=== PATIENT | female | born 1965 | race Caucasian/White ===

== ENCOUNTER 2024-06-22 06:25 | Inpatient (IN) ==
[2024-06-15 11:40] LABS: Basophils # (Auto) 0.05 K/mcL (0.00-0.30); Basophils % (Auto) 0.8 % (0.0-2.0); Eosinophils # (Auto) 0.18 K/mcL (0.00-0.70); Hematocrit 45.4 % (34.1-44.9); Hemoglobin 14.7 g/dL (11.2-15.7); Lymphocytes # (Auto) 1.64 K/mcL (1.50-4.80); Lymphocytes % (Auto) 27.2 % (15.5-49.0); Mean Cell Volume 87.3 fL (80.0-100.0); Mean Corpuscular HGB Conc 32.4 g/dL (31.0-36.0); Mean Platelet Volume 9.3 fL (8.8-12.5); Monocytes % (Auto) 8.3 % (1.0-12.0); Neutrophils % (Auto) 60.5 % (38.0-78.0); Platelet Count 237 K/mcL (140-440); Red Cell Distribution Width 12.8 % (11.5-14.5)
[2024-06-15 12:28] LABS: Blood Urea Nitrogen 13 mg/dL (6-20); Calcium 9.7 mg/dL (8.6-10.4); Carbon Dioxide 26 mmol/L (22-30); Chloride 104 mmol/L (96-108); Glomerular Filtration Rate 70; Glucose 91 mg/dL (70-105); Potassium 4.4 mmol/L (3.3-5.1); Sodium 141 mmol/L (133-145)
[2024-06-15 16:20] LABS: Estimated Average Glucose(eAG) 111 mg/dL; Hemoglobin A1C 5.5 % Hgb (4.0-6.0)
[2024-06-22] MEDS: CELECOXIB 200 MG CAPSULE PO SCH (06:59)
[2024-06-22] MEDS: ACETAMINOPHEN 500 MG TABLET PO SCH (06:59)
[2024-06-22] MEDS: GABAPENTIN 400 MG CAPSULE PO SCH (06:59)
[2024-06-22] MEDS ORDERED: KETAMINE 50 MG/ML ML ONE (07:02)
[2024-06-22] MEDS ORDERED: MIDAZOLAM 2 MG/2 ML VIAL ONE (07:02)
[2024-06-22] MEDS ORDERED: PROPOFOL 200 MG/20 ML VIAL IV ONE (07:02)
[2024-06-22] MEDS ORDERED: SUCCINYLCHOLINE 200 MG/10 ML VIAL IV ONE (07:04)
[2024-06-22] MEDS ORDERED: DEXAMETHASONE 10 MG/ML VIAL ONE (07:04)
[2024-06-22] MEDS ORDERED: LIDOCAINE 2% PF 5 ML VIAL ONE (07:04)
[2024-06-22] MEDS ORDERED: TRANEXAMIC ACID 1,000 MG/10 ML VIAL ONE (07:04)
[2024-06-22] MEDS ORDERED: PHENYLephrine 1 MG/10 ML SYRINGE (ANEST) ONE (07:04)
[2024-06-22] MEDS ORDERED: ROCURONIUM 10 MG/ML ML IV ONE ×2 (07:04→09:08)
[2024-06-22] MEDS ORDERED: ONDANSETRON 4 MG/2 ML VIAL ONE (07:04)
[2024-06-22] MEDS ORDERED: GLYCOPYRROLATE 0.2 MG/ML VIAL IV ONE (07:04)
[2024-06-22] MEDS ORDERED: ePHEDrine 50 MG/5 ML SYRINGE (ANEST) IV ONE (07:09)
[2024-06-22] MEDS ORDERED: METOCLOPRAMIDE 10 MG/2 ML VIAL ONE (07:09)
[2024-06-22] MEDS ORDERED: DEXMEDETOMIDINE HCL 200 MCG/2 ML VIAL ONE (07:09)
[2024-06-22] MEDS ORDERED: 0.9 % SODIUM CHLORIDE 100 ML IV ONE (07:11)
[2024-06-22] MEDS: ceFAZolin 2 GM in DEXTROSE 5% IN WATER 50 ML IV SCH (07:33)
[2024-06-22] MEDS: BUPIVACAINE W/EPI 0.25% 50 ML VIAL IJ ONE (07:57)
[2024-06-22] MEDS ORDERED: FAMOTIDINE/PF 20 MG/2 ML VIAL IV ONE (08:08)
[2024-06-22] MEDS ORDERED: HYDROmorphone 0.5 MG/0.5 ML SYRINGE ONE ×3 (09:08→12:30)
[2024-06-22] MEDS: metroNIDAZOLE 500 MG/100 ML BAG IV ONE (09:31)
[2024-06-22] MEDS: LEVOFLOXACIN 500 MG/100 ML BAG IV ONE (09:31)
[2024-06-22] MEDS ORDERED: fentaNYL 100 MCG/2 ML VIAL ONE (11:09)
[2024-06-22] MEDS ORDERED: NALOXONE HCL 0.4 MG/ML VIAL IV PRN (11:15)
[2024-06-22] MEDS ORDERED: fentaNYL 100 MCG/2 ML VIAL IV PRN (11:15)
[2024-06-22] MEDS ORDERED: ONDANSETRON 4 MG/2 ML VIAL IV PRN (11:15)
[2024-06-22] MEDS ORDERED: HYDROmorphone 0.5 MG/0.5 ML SYRINGE IV PRN (11:15)
[2024-06-22] MEDS ORDERED: IPRATROPIUM/ALBUTEROL 3 ML AMPUL.NEB NEB PRN (11:15)
[2024-06-22] MEDS ORDERED: KETOROLAC 30 MG/ML VIAL ONE (11:16)
[2024-06-22] MEDS ORDERED: SUGAMMADEX SODIUM 200 MG/2 ML VIAL IV ONE (11:18)
[2024-06-22] MEDS: DEXTROSE 5%-NS 1,000 ML IV SCH (13:25)
[2024-06-22] MEDS: LACTATED RINGERS 1,000 ML IV SCH (13:29)
[2024-06-22] MEDS: 0.9 % SODIUM CHLORIDE 10 ML SYRINGE IV SCH (14:11)
[2024-06-22] MEDS: ACETAMINOPHEN 1,000 MG/100 ML BAG IV SCH (14:33)
[2024-06-22] MEDS: metroNIDAZOLE 500 MG/100 ML BAG IV SCH (15:26)
[2024-06-22] MEDS: HYDROmorphone 0.5 MG/0.5 ML SYRINGE IV PRN (15:30)
[2024-06-22] MEDS ORDERED: LEVOFLOXACIN 750 MG/150 ML BAG IV SCH (16:00)
[2024-06-22] MEDS: LEVOFLOXACIN 500 MG/100 ML BAG IV SCH (16:37)
[2024-06-22] MEDS: METOCLOPRAMIDE 10 MG/2 ML VIAL IV SCH (17:05)
[2024-06-22] MEDS: LEVOFLOXACIN 250 MG/50 ML BAG IV SCH (18:10)
[2024-06-22] MEDS: DOCUSATE SODIUM 100 MG CAPSULE PO SCH (20:04)
[2024-06-22] MEDS: SENNOSIDES 1 TABLET PO SCH (20:04)
[2024-06-23 06:30] LABS: Basophils # (Auto) 0.02 K/mcL (0.00-0.30); Basophils % (Auto) 0.2 % (0.0-2.0); Eosinophils % (Auto) 2.7 % (0.0-7.0); Hematocrit 33.8 % (34.1-44.9); Hemoglobin 11.2 g/dL (11.2-15.7); Lymphocytes # (Auto) 0.67 K/mcL (1.50-4.80); Lymphocytes % (Auto) 5.9 % (15.5-49.0); Mean Cell Volume 86.4 fL (80.0-100.0); Mean Corpuscular HGB Conc 33.1 g/dL (31.0-36.0); Mean Platelet Volume 10.2 fL (8.8-12.5); Monocytes # (Auto) 0.57 K/mcL (0.10-0.90); Platelet Count 144 K/mcL (140-440); RBC 3.91 M/mcL (3.59-5.38); WBC 11.3 K/mcL (4.5-11.0)
[2024-06-23] MEDS: ONDANSETRON 4 MG/2 ML VIAL IV PRN (06:46)
[2024-06-23 06:53] LABS: ALT/SGPT 9 U/L (<40); AST/SGOT 23 U/L (<32); Albumin 3.3 gm/dL (3.2-5.2); Albumin/Globulin Ratio 2.2 (1.0-2.3); Alkaline Phosphatase 55 U/L (39-117); Bilirubin,Direct < 0.2 mg/dL (0-0.3); Bilirubin,Total 0.4 mg/dL (0.1-1.0); Blood Urea Nitrogen 14 mg/dL (6-20); Calcium 8.3 mg/dL (8.6-10.4); Carbon Dioxide 21 mmol/L (22-30); Chloride 101 mmol/L (96-108); Globulin 1.5 gm/dL (2.2-3.7); Glomerular Filtration Rate 70; Glucose 120 mg/dL (70-105); Lactate Dehydrogenase 166 U/L (135-225); Phosphorous 3.5 mg/dL (2.5-4.5); Potassium 4.3 mmol/L (3.3-5.1); Sodium 133 mmol/L (133-145); Triglycerides 128 mg/dL (<150); Uric Acid 4.2 mg/dL (2.5-8.0)
[2024-06-23] MEDS: PROCHLORPERAZINE 10 MG/2 ML VIAL IV PRN ×2 (12:54→20:33)
[2024-06-23] MEDS: HYDROmorphone 1 MG/ML SYRINGE IV PRN (13:08)
[2024-06-23] MEDS: PANTOPRAZOLE 40 MG VIAL IV ONE (17:14)
[2024-06-24 06:27] LABS: Basophils # (Auto) 0.01 K/mcL (0.00-0.30); Basophils % (Auto) 0.1 % (0.0-2.0); Eosinophils # (Auto) 0.19 K/mcL (0.00-0.70); Eosinophils % (Auto) 1.6 % (0.0-7.0); Hematocrit 36.5 % (34.1-44.9); Hemoglobin 12.1 g/dL (11.2-15.7); Lymphocytes # (Auto) 0.55 K/mcL (1.50-4.80); Lymphocytes % (Auto) 4.7 % (15.5-49.0); Mean Cell Volume 86.5 fL (80.0-100.0); Mean Corpuscular HGB Conc 33.2 g/dL (31.0-36.0); Mean Platelet Volume 10.3 fL (8.8-12.5); Monocytes # (Auto) 0.51 K/mcL (0.10-0.90); Monocytes % (Auto) 4.3 % (1.0-12.0); Platelet Count 151 K/mcL (140-440); RBC 4.22 M/mcL (3.59-5.38); WBC 11.8 K/mcL (4.5-11.0)
[2024-06-24 07:02] LABS: ALT/SGPT 10 U/L (<40); AST/SGOT 26 U/L (<32); Albumin 3.2 gm/dL (3.2-5.2); Albumin/Globulin Ratio 1.4 (1.0-2.3); Alkaline Phosphatase 68 U/L (39-117); Bilirubin,Direct 0.3 mg/dL (<0.3); Bilirubin,Total 0.6 mg/dL (0.1-1.0); Blood Urea Nitrogen 8 mg/dL (6-20); Calcium 8.4 mg/dL (8.6-10.4); Carbon Dioxide 19 mmol/L (22-30); Chloride 96 mmol/L (96-108); Globulin 2.3 gm/dL (2.2-3.7); Glomerular Filtration Rate 95; Glucose 146 mg/dL (70-105); Lactate Dehydrogenase 189 U/L (135-225); Phosphorous 1.8 mg/dL (2.5-4.5); Potassium 4.1 mmol/L (3.3-5.1); Sodium 129 mmol/L (133-145); Triglycerides 105 mg/dL (<150); Uric Acid 2.6 mg/dL (2.5-8.0)
[2024-06-24] MEDS: PANTOPRAZOLE 40 MG VIAL IV SCH (08:00)
[2024-06-24] MEDS ORDERED: IOPAMIDOL 100 ML BOTTLE IV ONE (14:46)
[2024-06-24] MEDS ORDERED: PROPOFOL 200 MG/20 ML VIAL IV ONE (16:30)
[2024-06-24] MEDS ORDERED: KETAMINE 50 MG/ML Syringe IV ONE (16:30)
[2024-06-24] MEDS ORDERED: ROCURONIUM 10 MG/ML ML IV ONE (17:36)
[2024-06-24] MEDS ORDERED: HYDROmorphone 0.5 MG/0.5 ML SYRINGE ONE (17:36)
[2024-06-24] MEDS ORDERED: METOCLOPRAMIDE 10 MG/2 ML VIAL ONE (17:37)
[2024-06-24] MEDS ORDERED: DEXAMETHASONE 10 MG/ML VIAL ONE (17:37)
[2024-06-24] MEDS ORDERED: ONDANSETRON 4 MG/2 ML VIAL ONE (17:37)
[2024-06-24] MEDS ORDERED: GLYCOPYRROLATE 0.2 MG/ML VIAL IV ONE (17:37)
[2024-06-24] MEDS ORDERED: PHENYLephrine 1 MG/10 ML SYRINGE (ANEST) ONE (17:37)
[2024-06-24] MEDS ORDERED: fentaNYL 100 MCG/2 ML VIAL ONE (17:42)
[2024-06-24] MEDS ORDERED: LIDOCAINE 2% PF 5 ML VIAL ONE (17:42)
[2024-06-24] MEDS ORDERED: SUGAMMADEX SODIUM 200 MG/2 ML VIAL IV ONE (17:54)
[2024-06-24] MEDS ORDERED: IPRATROPIUM/ALBUTEROL 3 ML AMPUL.NEB NEB PRN (17:58)
[2024-06-24] MEDS ORDERED: HYDROmorphone 0.5 MG/0.5 ML SYRINGE IV PRN (17:58)
[2024-06-24] MEDS ORDERED: fentaNYL 100 MCG/2 ML VIAL IV PRN (17:58)
[2024-06-24] MEDS: BENZOCAINE ONE 20% 1 SPRAY TOPICAL PRN (21:29)
[2024-06-24] MEDS: ONDANSETRON 4 MG/2 ML VIAL IV PRN (21:48)
[2024-06-24] MEDS: LACTATED RINGERS 1,000 ML IV SCH (22:04)
[2024-06-25] MEDS: PYRIDOSTIGMINE BROMIDE 10 MG/2 ML AMPUL IV SCH (00:12)
[2024-06-25 06:30] LABS: Basophils # (Auto) 0 K/mcL (0.00-0.30); Basophils % (Auto) 0 % (0.0-2.0); Eosinophils # (Auto) 0.02 K/mcL (0.00-0.70); Eosinophils % (Auto) 0.2 % (0.0-7.0); Hematocrit 34.7 % (34.1-44.9); Hemoglobin 11.5 g/dL (11.2-15.7); Lymphocytes # (Auto) 0.42 K/mcL (1.50-4.80); Lymphocytes % (Auto) 4.2 % (15.5-49.0); Mean Cell Volume 86.1 fL (80.0-100.0); Mean Corpuscular HGB Conc 33.1 g/dL (31.0-36.0); Mean Platelet Volume 10.2 fL (8.8-12.5); Monocytes # (Auto) 0.46 K/mcL (0.10-0.90); Monocytes % (Auto) 4.6 % (1.0-12.0); Neutrophils % (Auto) 90.7 % (38.0-78.0); Platelet Count 149 K/mcL (140-440); RBC 4.03 M/mcL (3.59-5.38); WBC 9.9 K/mcL (4.5-11.0)
[2024-06-25 07:08] LABS: ALT/SGPT 11 U/L (<40); AST/SGOT 23 U/L (<32); Albumin 2.8 gm/dL (3.2-5.2); Albumin/Globulin Ratio 1.2 (1.0-2.3); Alkaline Phosphatase 56 U/L (39-117); Bilirubin,Direct 0.2 mg/dL (<0.3); Bilirubin,Total 0.4 mg/dL (0.1-1.0); Blood Urea Nitrogen 7 mg/dL (6-20); Calcium 8.4 mg/dL (8.6-10.4); Carbon Dioxide 23 mmol/L (22-30); Chloride 103 mmol/L (96-108); Globulin 2.4 gm/dL (2.2-3.7); Glomerular Filtration Rate 95; Glucose 143 mg/dL (70-105); Lactate Dehydrogenase 206 U/L (135-225); Phosphorous 1.8 mg/dL (2.5-4.5); Potassium 4.3 mmol/L (3.3-5.1); Sodium 136 mmol/L (133-145); Triglycerides 102 mg/dL (<150); Uric Acid 2.8 mg/dL (2.5-8.0)
[2024-06-26 05:50] LABS: Basophils # (Auto) 0.01 K/mcL (0.00-0.30); Basophils % (Auto) 0.1 % (0.0-2.0); Eosinophils # (Auto) 0.41 K/mcL (0.00-0.70); Eosinophils % (Auto) 5.3 % (0.0-7.0); Hematocrit 32.2 % (34.1-44.9); Hemoglobin 10.5 g/dL (11.2-15.7); Lymphocytes # (Auto) 0.69 K/mcL (1.50-4.80); Lymphocytes % (Auto) 8.9 % (15.5-49.0); Mean Corpuscular HGB Conc 32.6 g/dL (31.0-36.0); Mean Platelet Volume 9.8 fL (8.8-12.5); Monocytes # (Auto) 0.51 K/mcL (0.10-0.90); Monocytes % (Auto) 6.6 % (1.0-12.0); Neutrophils % (Auto) 78.7 % (38.0-78.0); Platelet Count 160 K/mcL (140-440); RBC 3.66 M/mcL (3.59-5.38); Red Cell Distribution Width 13.3 % (11.5-14.5); WBC 7.8 K/mcL (4.5-11.0)
[2024-06-26 07:00] LABS: ALT/SGPT 11 U/L (<40); AST/SGOT 21 U/L (<32); Albumin 2.7 gm/dL (3.2-5.2); Albumin/Globulin Ratio 1.2 (1.0-2.3); Alkaline Phosphatase 69 U/L (39-117); Bilirubin,Direct < 0.2 mg/dL (0-0.3); Bilirubin,Total 0.4 mg/dL (0.1-1.0); Blood Urea Nitrogen 8 mg/dL (6-20); Calcium 7.7 mg/dL (8.6-10.4); Carbon Dioxide 24 mmol/L (22-30); Chloride 109 mmol/L (96-108); Globulin 2.2 gm/dL (2.2-3.7); Glomerular Filtration Rate 100; Glucose 116 mg/dL (70-105); Lactate Dehydrogenase 200 U/L (135-225); Phosphorous 1.4 mg/dL (2.5-4.5); Potassium 3.3 mmol/L (3.3-5.1); Sodium 141 mmol/L (133-145); Triglycerides 120 mg/dL (<150); Uric Acid 3.2 mg/dL (2.5-8.0)
[2024-06-26] MEDS: DEXTROSE 5%-LR 1,000 ML IV SCH (13:37)
[2024-06-27] MEDS: LORazepam 2 MG/ML VIAL ONE (03:56)
[2024-06-27] MEDS: LORazepam 2 MG/ML VIAL IV PRN (03:59)
[2024-06-27 06:16] LABS: Basophils # (Auto) 0.02 K/mcL (0.00-0.30); Basophils % (Auto) 0.2 % (0.0-2.0); Hematocrit 31.4 % (34.1-44.9); Hemoglobin 10.3 g/dL (11.2-15.7); Lymphocytes # (Auto) 0.76 K/mcL (1.50-4.80); Lymphocytes % (Auto) 9.5 % (15.5-49.0); Mean Corpuscular HGB Conc 32.8 g/dL (31.0-36.0); Mean Platelet Volume 9.3 fL (8.8-12.5); Monocytes # (Auto) 0.56 K/mcL (0.10-0.90); Neutrophils % (Auto) 76.3 % (38.0-78.0); Platelet Count 164 K/mcL (140-440); RBC 3.61 M/mcL (3.59-5.38); Red Cell Distribution Width 13.4 % (11.5-14.5)
[2024-06-27 06:28] LABS: ALT/SGPT 12 U/L (<40); AST/SGOT 18 U/L (<32); Albumin 2.5 gm/dL (3.2-5.2); Albumin/Globulin Ratio 1.1 (1.0-2.3); Alkaline Phosphatase 57 U/L (39-117); Bilirubin,Direct 0.2 mg/dL (<0.3); Bilirubin,Total 0.3 mg/dL (0.1-1.0); Blood Urea Nitrogen 9 mg/dL (6-20); Carbon Dioxide 24 mmol/L (22-30); Chloride 108 mmol/L (96-108); Globulin 2.2 gm/dL (2.2-3.7); Glomerular Filtration Rate 100; Glucose 132 mg/dL (70-105); Lactate Dehydrogenase 176 U/L (135-225); Potassium 3.4 mmol/L (3.3-5.1); Sodium 141 mmol/L (133-145); Triglycerides 109 mg/dL (<150); Uric Acid 2.8 mg/dL (2.5-8.0)
[2024-06-27] MEDS: BENZOCAINE/MENTHOL 1 LOZENGE PO PRN (09:45)
[2024-06-27] MEDS: HEPARIN 5,000 UNIT/ML VIAL SQ SCH (21:02)
[2024-06-28 06:08] LABS: Hematocrit 31.6 % (34.1-44.9); Hemoglobin 10.3 g/dL (11.2-15.7); Mean Cell Volume 87.3 fL (80.0-100.0); Mean Corpuscular HGB Conc 32.6 g/dL (31.0-36.0); Mean Platelet Volume 9.1 fL (8.8-12.5); Platelet Count 174 K/mcL (140-440); RBC 3.62 M/mcL (3.59-5.38); Red Cell Distribution Width 13.3 % (11.5-14.5); WBC 7.9 K/mcL (4.5-11.0)
[2024-06-28 06:40] LABS: Blood Urea Nitrogen 10 mg/dL (6-20); Carbon Dioxide 25 mmol/L (22-30); Chloride 107 mmol/L (96-108); Glomerular Filtration Rate 100; Glucose 118 mg/dL (70-105); Potassium 3.1 mmol/L (3.3-5.1); Sodium 141 mmol/L (133-145)
[2024-06-29 06:11] LABS: Hematocrit 30.8 % (34.1-44.9); Hemoglobin 10.1 g/dL (11.2-15.7); Mean Cell Volume 86.5 fL (80.0-100.0); Mean Corpuscular HGB Conc 32.8 g/dL (31.0-36.0); Mean Platelet Volume 9.1 fL (8.8-12.5); Platelet Count 205 K/mcL (140-440); RBC 3.56 M/mcL (3.59-5.38); Red Cell Distribution Width 13.2 % (11.5-14.5); WBC 8.8 K/mcL (4.5-11.0)
[2024-06-29 06:35] LABS: Blood Urea Nitrogen 8 mg/dL (6-20); Carbon Dioxide 26 mmol/L (22-30); Chloride 106 mmol/L (96-108); Glomerular Filtration Rate 100; Glucose 127 mg/dL (70-105); Potassium 3.1 mmol/L (3.3-5.1); Sodium 141 mmol/L (133-145)
[2024-06-29] MEDS ORDERED: PIPERACILLIN SODIUM/TAZOBACTAM 4.5 GM in DEXTROSE 5% IN WATER 100 ML IV SCH (17:00)
[2024-06-29] MEDS: PIPERACILLIN SODIUM/TAZOBACTAM 4.5 GM in DEXTROSE 5% IN WATER 100 ML IV SCH ×2 (18:00→23:18)
[2024-06-29] MEDS: METOCLOPRAMIDE 10 MG/2 ML VIAL IV PRN (18:01)
[2024-06-30 06:05] LABS: Hematocrit 31.5 % (34.1-44.9); Hemoglobin 10.3 g/dL (11.2-15.7); Mean Cell Volume 86.1 fL (80.0-100.0); Mean Corpuscular HGB Conc 32.7 g/dL (31.0-36.0); Mean Platelet Volume 8.8 fL (8.8-12.5); Platelet Count 211 K/mcL (140-440); RBC 3.66 M/mcL (3.59-5.38); Red Cell Distribution Width 13.1 % (11.5-14.5); WBC 7.7 K/mcL (4.5-11.0)
[2024-06-30 06:40] LABS: Blood Urea Nitrogen 7 mg/dL (6-20); Calcium 7.9 mg/dL (8.6-10.4); Carbon Dioxide 28 mmol/L (22-30); Chloride 105 mmol/L (96-108); Glomerular Filtration Rate 95; Glucose 126 mg/dL (70-105); Potassium 3.4 mmol/L (3.3-5.1); Sodium 141 mmol/L (133-145)
[2024-06-30] MEDS: DEXTROSE 5%-LR 1,000 ML IV SCH (17:11)
[2024-07-01 06:00] LABS: Hemoglobin 10.2 g/dL (11.2-15.7); Mean Cell Volume 87.1 fL (80.0-100.0); Mean Corpuscular HGB Conc 32.9 g/dL (31.0-36.0); Mean Platelet Volume 8.7 fL (8.8-12.5); Platelet Count 229 K/mcL (140-440); RBC 3.56 M/mcL (3.59-5.38); Red Cell Distribution Width 13.3 % (11.5-14.5); WBC 8.5 K/mcL (4.5-11.0)
[2024-07-01 06:27] LABS: Blood Urea Nitrogen 5 mg/dL (6-20); Calcium 7.9 mg/dL (8.6-10.4); Carbon Dioxide 27 mmol/L (22-30); Chloride 107 mmol/L (96-108); Glomerular Filtration Rate 95; Glucose 124 mg/dL (70-105); Potassium 3.1 mmol/L (3.3-5.1); Sodium 142 mmol/L (133-145)
[2024-07-01] MEDS: POTASSIUM CHLORIDE 40 MEQ in DEXTROSE 5% IN WATER 500 ML IV ONE (12:07)
[2024-07-01] MEDS: DEXTROSE 5%-LR W/20MEQ KCL 1,000 ML IV SCH (12:51)
[2024-07-02 06:07] LABS: Hematocrit 32.5 % (34.1-44.9); Hemoglobin 10.6 g/dL (11.2-15.7); Mean Cell Volume 87.4 fL (80.0-100.0); Mean Corpuscular HGB Conc 32.6 g/dL (31.0-36.0); Mean Platelet Volume 8.6 fL (8.8-12.5); Platelet Count 260 K/mcL (140-440); RBC 3.72 M/mcL (3.59-5.38); Red Cell Distribution Width 13.3 % (11.5-14.5)
[2024-07-02 06:44] LABS: Blood Urea Nitrogen 3 mg/dL (6-20); Carbon Dioxide 25 mmol/L (22-30); Chloride 107 mmol/L (96-108); Glomerular Filtration Rate 95; Glucose 125 mg/dL (70-105); Potassium 3.3 mmol/L (3.3-5.1); Sodium 141 mmol/L (133-145)
[2024-07-02] MEDS: DEXTROSE 5%-LR W/20MEQ KCL 1,000 ML IV SCH (16:22)
[2024-07-03 06:33] LABS: Blood Urea Nitrogen 3 mg/dL (6-20); Calcium 8.1 mg/dL (8.6-10.4); Carbon Dioxide 23 mmol/L (22-30); Chloride 108 mmol/L (96-108); Glomerular Filtration Rate 95; Glucose 114 mg/dL (70-105); Potassium 3.6 mmol/L (3.3-5.1); Sodium 141 mmol/L (133-145)
[2024-07-03] MEDS ORDERED: HYDROcodone/APAP 5/325MG TABLET PO PRN (10:15)
[2024-07-03] MEDS: DEXTROSE 5%-LR W/20MEQ KCL 1,000 ML IV SCH (12:06)
[2024-07-04] MEDS: ACETAMINOPHEN 1,000 MG/100 ML BAG IV PRN (22:27)
[2024-07-06 07:13] VITALS: TEMP 97.3; O2SAT 98
[2024-07-06] MEDS ORDERED: AMOXICILLIN/POTASSIUM CLAV 875 MG TABLET PO SCH (17:30)
== END 2024-07-06 10:30 | DRG 908 ==
LOC: SUATTDRO → MEDSUR 06:25 → SUR 06:25 → OBSVTOIN 13:12
PROVIDERS: ADMIT Family Medicine Adult Medicine; ATTEND Family Medicine Adult Medicine

== ENCOUNTER 2024-11-25 05:00 | Inpatient (IN) ==
[2024-11-18 17:49] LABS: Basophils # (Auto) 0.03 K/mcL (0.00-0.30); Basophils % (Auto) 0.6 % (0.0-2.0); Eosinophils # (Auto) 0.17 K/mcL (0.00-0.70); Eosinophils % (Auto) 3.2 % (0.0-7.0); Hematocrit 42.4 % (34.1-44.9); Hemoglobin 13.5 g/dL (11.2-15.7); Lymphocytes % (Auto) 37.2 % (15.5-49.0); Mean Cell Volume 86.4 fL (80.0-100.0); Mean Corpuscular HGB Conc 31.8 g/dL (31.0-36.0); Mean Platelet Volume 9.7 fL (8.8-12.5); Monocytes # (Auto) 0.42 K/mcL (0.10-0.90); Monocytes % (Auto) 7.8 % (1.0-12.0); Neutrophils % (Auto) 50.8 % (38.0-78.0); Platelet Count 205 K/mcL (140-440); RBC 4.91 M/mcL (3.59-5.38); Red Cell Distribution Width 14.6 % (11.5-14.5); WBC 5.4 K/mcL (4.5-11.0)
[2024-11-18 17:52] LABS: Prothrombin Time 13.5 sec (11.9-14.5)
[2024-11-18 17:57] LABS: ALT/SGPT 22 U/L (<40); AST/SGOT 22 U/L (<32); Albumin 4.6 gm/dL (3.2-5.2); Albumin/Globulin Ratio 1.8 (1.0-2.3); Alkaline Phosphatase 78 U/L (39-117); Bilirubin,Total 0.4 mg/dL (0.1-1.0); Blood Urea Nitrogen 14 mg/dL (6-20); Calcium 9.6 mg/dL (8.6-10.4); Carbon Dioxide 27 mmol/L (22-30); Chloride 105 mmol/L (96-108); Globulin 2.6 gm/dL (2.2-3.7); Glomerular Filtration Rate 70; Glucose 94 mg/dL (70-105); Potassium 3.7 mmol/L (3.3-5.1); Sodium 143 mmol/L (133-145)
[2024-11-25] MEDS ORDERED: KETAMINE 50 MG/ML ML ONE ×2 (07:15→08:22)
[2024-11-25] MEDS ORDERED: fentaNYL 100 MCG/2 ML VIAL ONE (07:15)
[2024-11-25] MEDS ORDERED: PROPOFOL 200 MG/20 ML VIAL IV ONE (07:15)
[2024-11-25] MEDS: CEFEPIME 2 GM VIAL IV SCH (07:15)
[2024-11-25] MEDS ORDERED: ROCURONIUM 10 MG/ML ML IV ONE ×2 (07:18→10:25)
[2024-11-25] MEDS ORDERED: LIDOCAINE 2% PF 5 ML VIAL ONE ×2 (07:18→08:20)
[2024-11-25] MEDS ORDERED: SUCCINYLCHOLINE 200 MG/10 ML VIAL IV ONE (07:18)
[2024-11-25] MEDS ORDERED: ONDANSETRON 4 MG/2 ML VIAL ONE (07:18)
[2024-11-25] MEDS ORDERED: GLYCOPYRROLATE 0.2 MG/ML VIAL IV ONE (07:18)
[2024-11-25] MEDS ORDERED: DEXAMETHASONE 10 MG/ML VIAL ONE (07:18)
[2024-11-25] MEDS: metroNIDAZOLE 500 MG/100 ML BAG IV SCH (07:21)
[2024-11-25] MEDS ORDERED: MAGNESIUM SULFATE 2 GM/50 ML BAG IV ONE ×2 (07:43→07:56)
[2024-11-25] MEDS ORDERED: ePHEDrine 50 MG/5 ML SYRINGE (ANEST) IV ONE (07:58)
[2024-11-25] MEDS ORDERED: METOCLOPRAMIDE 10 MG/2 ML VIAL ONE (08:24)
[2024-11-25] MEDS ORDERED: FAMOTIDINE/PF 20 MG/2 ML VIAL IV ONE (08:24)
[2024-11-25] MEDS: SCOPOLAMINE 1 PATCH PATCH TOPICAL SCH (08:26)
[2024-11-25] MEDS ORDERED: HYDROmorphone 0.5 MG/0.5 ML SYRINGE ONE ×3 (08:28→12:02)
[2024-11-25] MEDS ORDERED: PHENYLephrine 1 MG/10 ML SYRINGE (ANEST) ONE (11:03)
[2024-11-25] MEDS ORDERED: SUGAMMADEX SODIUM 200 MG/2 ML VIAL IV ONE (11:47)
[2024-11-25] MEDS ORDERED: LACTATED RINGERS 250 ML IV PRN (12:16)
[2024-11-25] MEDS ORDERED: fentaNYL 100 MCG/2 ML VIAL IV PRN (12:16)
[2024-11-25] MEDS ORDERED: IPRATROPIUM/ALBUTEROL 3 ML AMPUL.NEB NEB PRN (12:16)
[2024-11-25] MEDS ORDERED: NALOXONE HCL 0.4 MG/ML VIAL IV PRN (12:16)
[2024-11-25] MEDS ORDERED: BENZOCAINE/MENTHOL 1 LOZENGE PO PRN (12:16)
[2024-11-25] MEDS ORDERED: ONDANSETRON 4 MG/2 ML VIAL IV PRN ×2 (12:16→12:39)
[2024-11-25] MEDS ORDERED: DROPERIDOL 5 MG/2 ML VIAL IV PRN (12:16)
[2024-11-25] MEDS ORDERED: ONDANSETRON 4 MG ODT TABLET SL PRN (12:39)
[2024-11-25] MEDS: ACETAMINOPHEN 1,000 MG/100 ML BAG IV ONE (13:00)
[2024-11-25] MEDS: ACETAMINOPHEN 1,000 MG/100 ML BAG IV SCH ×2 (13:00→19:55)
[2024-11-25] MEDS: KETOROLAC 15 MG/ML VIAL IV PRN (13:09)
[2024-11-25] MEDS: METHOCARBAMOL 1,000 MG/10 ML VIAL IV PRN (13:09)
[2024-11-25] MEDS: HYDROmorphone 0.5 MG/0.5 ML SYRINGE IV PRN ×2 (13:10→16:02)
[2024-11-25] MEDS: LACTATED RINGERS 1,000 ML IV SCH (14:06)
[2024-11-25] MEDS: PIPERACILLIN SODIUM/TAZOBACTAM 3.375 GM in DEXTROSE 5% IN WATER 50 ML IV SCH (14:08)
[2024-11-25] MEDS: 0.9 % SODIUM CHLORIDE 10 ML SYRINGE IV SCH (14:10)
[2024-11-25] MEDS: PIPERACILLIN SODIUM/TAZOBACTAM 4.5 GM in DEXTROSE 5% IN WATER 50 ML IV ONE (14:22)
[2024-11-25] MEDS: 0.9 % SODIUM CHLORIDE 1,000 ML IV SCH (14:22)
[2024-11-25] MEDS: BENZOCAINE/MENTHOL 1 LOZENGE PO PRN (16:03)
[2024-11-25] MEDS: PIPERACILLIN SODIUM/TAZOBACTAM 4.5 GM in DEXTROSE 5% IN WATER 100 ML IV SCH (18:19)
[2024-11-25] MEDS: clonazePAM 0.5 MG TABLET PO SCH (20:49)
[2024-11-26] MEDS: METOCLOPRAMIDE 10 MG/2 ML VIAL IV SCH (00:12)
[2024-11-26 05:58] LABS: Basophils # (Auto) 0.01 K/mcL (0.00-0.30); Basophils % (Auto) 0.1 % (0.0-2.0); Eosinophils # (Auto) 0 K/mcL (0.00-0.70); Eosinophils % (Auto) 0 % (0.0-7.0); Hematocrit 32.3 % (34.1-44.9); Hemoglobin 10.4 g/dL (11.2-15.7); Lymphocytes # (Auto) 0.81 K/mcL (1.50-4.80); Lymphocytes % (Auto) 6.3 % (15.5-49.0); Mean Cell Volume 86.8 fL (80.0-100.0); Mean Corpuscular HGB Conc 32.2 g/dL (31.0-36.0); Monocytes # (Auto) 0.92 K/mcL (0.10-0.90); Monocytes % (Auto) 7.2 % (1.0-12.0); Neutrophils % (Auto) 86.2 % (38.0-78.0); Platelet Count 162 K/mcL (140-440); RBC 3.72 M/mcL (3.59-5.38); Red Cell Distribution Width 14.4 % (11.5-14.5); WBC 12.9 K/mcL (4.5-11.0)
[2024-11-26 06:24] LABS: ALT/SGPT 21 U/L (<40); AST/SGOT 24 U/L (<32); Albumin 3.5 gm/dL (3.2-5.2); Albumin/Globulin Ratio 1.7 (1.0-2.3); Alkaline Phosphatase 50 U/L (39-117); Bilirubin,Direct 0.2 mg/dL (<0.3); Bilirubin,Total 0.6 mg/dL (0.1-1.0); Blood Urea Nitrogen 12 mg/dL (6-20); Calcium 8.6 mg/dL (8.6-10.4); Carbon Dioxide 24 mmol/L (22-30); Chloride 106 mmol/L (96-108); Globulin 2.1 gm/dL (2.2-3.7); Glomerular Filtration Rate 70; Glucose 124 mg/dL (70-105); Lactate Dehydrogenase 176 U/L (135-225); Phosphorous 4.5 mg/dL (2.5-4.5); Potassium 4.4 mmol/L (3.3-5.1); Sodium 139 mmol/L (133-145); Triglycerides 153 mg/dL (<150); Uric Acid 3.4 mg/dL (2.5-8.0)
[2024-11-26] MEDS ORDERED: LIDOCAINE 4% TOP PATCH TOPICAL SCH (12:25)
[2024-11-26] MEDS: LIDOCAINE 4% TOP PATCH TOPICAL SCH (12:40)
[2024-11-26] MEDS: HYDROCORTISONE CRM 1% TUBE 30GM TOPICAL PRN (14:31)
[2024-11-28 06:22] LABS: Basophils # (Auto) 0.02 K/mcL (0.00-0.30); Basophils % (Auto) 0.4 % (0.0-2.0); Eosinophils # (Auto) 0.15 K/mcL (0.00-0.70); Eosinophils % (Auto) 2.7 % (0.0-7.0); Hematocrit 29.1 % (34.1-44.9); Hemoglobin 9.3 g/dL (11.2-15.7); Lymphocytes # (Auto) 1.02 K/mcL (1.50-4.80); Lymphocytes % (Auto) 18.4 % (15.5-49.0); Mean Cell Volume 87.4 fL (80.0-100.0); Mean Platelet Volume 10.1 fL (8.8-12.5); Monocytes # (Auto) 0.47 K/mcL (0.10-0.90); Monocytes % (Auto) 8.5 % (1.0-12.0); Neutrophils % (Auto) 69.6 % (38.0-78.0); Platelet Count 128 K/mcL (140-440); RBC 3.33 M/mcL (3.59-5.38); Red Cell Distribution Width 14.4 % (11.5-14.5); WBC 5.6 K/mcL (4.5-11.0)
[2024-11-28 06:42] LABS: ALT/SGPT 19 U/L (<40); AST/SGOT 18 U/L (<32); Albumin 3.1 gm/dL (3.2-5.2); Albumin/Globulin Ratio 1.5 (1.0-2.3); Alkaline Phosphatase 55 U/L (39-117); Bilirubin,Direct 0.4 mg/dL (<0.3); Bilirubin,Total 0.8 mg/dL (0.1-1.0); Blood Urea Nitrogen 9 mg/dL (6-20); Calcium 8.2 mg/dL (8.6-10.4); Carbon Dioxide 24 mmol/L (22-30); Chloride 108 mmol/L (96-108); Globulin 2.1 gm/dL (2.2-3.7); Glomerular Filtration Rate 80; Glucose 81 mg/dL (70-105); Lactate Dehydrogenase 141 U/L (135-225); Potassium 3.5 mmol/L (3.3-5.1); Sodium 140 mmol/L (133-145); Triglycerides 174 mg/dL (<150); Uric Acid 2.4 mg/dL (2.5-8.0)
[2024-11-29 06:11] LABS: Basophils # (Auto) 0.02 K/mcL (0.00-0.30); Basophils % (Auto) 0.4 % (0.0-2.0); Eosinophils # (Auto) 0.22 K/mcL (0.00-0.70); Eosinophils % (Auto) 4.4 % (0.0-7.0); Hematocrit 30.7 % (34.1-44.9); Hemoglobin 10.1 g/dL (11.2-15.7); Lymphocytes # (Auto) 1.06 K/mcL (1.50-4.80); Lymphocytes % (Auto) 21.2 % (15.5-49.0); Mean Cell Volume 87.5 fL (80.0-100.0); Mean Corpuscular HGB Conc 32.9 g/dL (31.0-36.0); Monocytes # (Auto) 0.37 K/mcL (0.10-0.90); Monocytes % (Auto) 7.4 % (1.0-12.0); Neutrophils % (Auto) 66.2 % (38.0-78.0); Platelet Count 178 K/mcL (140-440); RBC 3.51 M/mcL (3.59-5.38); Red Cell Distribution Width 14.2 % (11.5-14.5)
[2024-11-29 06:32] LABS: ALT/SGPT 19 U/L (<40); AST/SGOT 19 U/L (<32); Albumin 3.5 gm/dL (3.2-5.2); Albumin/Globulin Ratio 1.4 (1.0-2.3); Alkaline Phosphatase 62 U/L (39-117); Bilirubin,Direct 0.3 mg/dL (<0.3); Bilirubin,Total 0.7 mg/dL (0.1-1.0); Blood Urea Nitrogen 5 mg/dL (6-20); Calcium 8.7 mg/dL (8.6-10.4); Carbon Dioxide 25 mmol/L (22-30); Chloride 108 mmol/L (96-108); Globulin 2.5 gm/dL (2.2-3.7); Glomerular Filtration Rate 94; Glucose 91 mg/dL (70-105); Lactate Dehydrogenase 201 U/L (135-225); Phosphorous 3.4 mg/dL (2.5-4.5); Potassium 3.5 mmol/L (3.3-5.1); Sodium 140 mmol/L (133-145); Triglycerides 208 mg/dL (<150); Uric Acid 2.4 mg/dL (2.5-8.0)
[2024-11-29] MEDS ORDERED: oxyCODONE IR 5 MG TABLET PO PRN (14:55)
[2024-11-29] MEDS: METHOCARBAMOL 750 MG TABLET PO SCH (20:38)
[2024-11-29] MEDS ORDERED: clonazePAM 0.5 MG TABLET PO SCH (21:00)
[2024-11-30 06:42] LABS: ALT/SGPT 17 U/L (<40); AST/SGOT 18 U/L (<32); Albumin 3.2 gm/dL (3.2-5.2); Albumin/Globulin Ratio 1.6 (1.0-2.3); Alkaline Phosphatase 58 U/L (39-117); Bilirubin,Direct < 0.2 mg/dL (0-0.3); Bilirubin,Total 0.4 mg/dL (0.1-1.0); Blood Urea Nitrogen 4 mg/dL (6-20); Calcium 8.6 mg/dL (8.6-10.4); Carbon Dioxide 25 mmol/L (22-30); Chloride 111 mmol/L (96-108); Glomerular Filtration Rate 94; Glucose 96 mg/dL (70-105); Lactate Dehydrogenase 148 U/L (135-225); Phosphorous 3.7 mg/dL (2.5-4.5); Potassium 3.5 mmol/L (3.3-5.1); Sodium 144 mmol/L (133-145); Triglycerides 187 mg/dL (<150)
[2024-11-30 06:45] LABS: Basophils # (Auto) 0.02 K/mcL (0.00-0.30); Basophils % (Auto) 0.4 % (0.0-2.0); Eosinophils # (Auto) 0.28 K/mcL (0.00-0.70); Eosinophils % (Auto) 5.7 % (0.0-7.0); Hematocrit 27.8 % (34.1-44.9); Lymphocytes # (Auto) 1.12 K/mcL (1.50-4.80); Mean Cell Volume 87.1 fL (80.0-100.0); Mean Corpuscular HGB Conc 32.4 g/dL (31.0-36.0); Mean Platelet Volume 10.1 fL (8.8-12.5); Monocytes # (Auto) 0.37 K/mcL (0.10-0.90); Monocytes % (Auto) 7.6 % (1.0-12.0); Neutrophils % (Auto) 62.5 % (38.0-78.0); Platelet Count 165 K/mcL (140-440); RBC 3.19 M/mcL (3.59-5.38); Red Cell Distribution Width 14.4 % (11.5-14.5); WBC 4.9 K/mcL (4.5-11.0)
[2024-11-30] MEDS: NYSTATIN 500,000 UNITS/5 ML ORAL.SUSP SSW SCH (10:13)
[2024-11-30 11:48] VITALS: O2SAT 98
[2024-11-30 14:30] VITALS: TEMP 98.6
== END 2024-11-30 14:55 | disposition home or self-care (01) | DRG 346 ==
LOC: MEDSUR 05:00
PROVIDERS: ADMIT Family Medicine Adult Medicine; ATTEND Family Medicine Adult Medicine